=== PATIENT | male | born 1965 | race Caucasian/White ===

== ENCOUNTER 2023-10-06 23:28 | Observation (INO) | payer OTHER ==
[~2023-10-06] VITALS: Ht 177.8 cm; Wt 95.3 kg
[2023-10-07 00:04] VITALS: BP_SYST 131; PULSE 68; RESP 18; TEMP 98.3; O2SAT 97
[2023-10-07] MEDS ORDERED: NITROGLYCERIN 1 INCH (GM) OINT. TP ONE (00:24)
[2023-10-07] MEDS ORDERED: MORPHINE 4 MG INJ. 4 MG/ML VIAL IVP ONE ×2 (00:24→06:30)
[2023-10-07] MEDS ORDERED: ASPIRIN 325 MG TABLET PO ONE (00:30)
[2023-10-07 01:53] LABS: MONOCYTES # (AUTO) 0.5 K/uL (0.0-1.0); NEUTROPHILS # (AUTO) 3.5 K/uL (1.8-7.7)
[2023-10-07 02:08] LABS: THYROID STIMULATING HORMONE 2.54 uIu/mL (0.34-4.82)
[2023-10-07 02:21] LABS: BASOPHILS % (AUTO) 0.2 % (0.0-2.0); EOSINOPHILS # (AUTO) 0.2 K/uL (0.0-0.4); LYMPHOCYTES # (AUTO) 1.6 K/uL (1.0-5.5); LYMPHOCYTES % (AUTO) 28.2 % (20.5-51.5); MEAN CORPUSCULAR HEMOGLOBIN 29 pg (27-31); MEAN CORPUSCULAR HGB CONC 33 % (32-36); MEAN CORPUSCULAR VOLUME 89 fL (79.0-98.0); NEUTROPHILS % (AUTO) 59.6 % (40.0-70.0); PLATELET COUNT (AUTO) 258 K/uL (130-430); RED BLOOD CELL COUNT(AUTO) 4.85 MIL/uL (4.2-6.2); RED CELL DISTRIBUTION WIDTH 13.5 % (9.0-15.0); WHITE BLOOD COUNT (AUTO) 5.8 K/uL (4.8-10.8)
[2023-10-07 04:11] LABS: INR 0.9 (0.80-1.20); PROTHROMBIN TIME 9.8 SECS (9.5-12.5)
[2023-10-07 04:39] LABS: CALCIUM 8.6 mg/dL (8.4-11.0); CREATININE 0.82 mg/dL (0.55-1.30); POTASSIUM 3.8 mmol/L (3.5-5.1)
[2023-10-07 05:09] LABS: ALBUMIN 3.6 g/dL (3.4-4.8); TOTAL BILIRUBIN 0.4 mg/dL (0.0-1.0); TOTAL PROTEIN, SERUM 6.9 g/dL (6.4-8.3)
[2023-10-07] MEDS ORDERED: NITROGLYCERIN 0.4 MG TAB.SUBL SL PRN (07:15)
[2023-10-07] MEDS ORDERED: MORPHINE 4 MG INJ. 4 MG/ML VIAL IVP PRN (07:15)
[2023-10-07] MEDS ORDERED: ASPIRIN 81 MG TAB.CHEW PO SCH (09:00)
[2023-10-07] MEDS ORDERED: ATOR-1 PO (10:35)
[2023-10-07] MEDS ORDERED: METO-540 PO (10:35)
[2023-10-07] MEDS ORDERED: LEVO150T PO (10:35)
[2023-10-07] MEDS ORDERED: ASA81 PO (17:56)
[2023-10-07 18:14] VITALS: BP_SYST 118; PULSE 62; RESP 17; TEMP 97.7; O2SAT 96
== END 2023-10-07 18:15 | disposition home or self-care (01) ==
LOC: SED 23:28 → STU 10-07 07:01
PROVIDERS: ADMIT Family Medicine; ATTEND Family Medicine
DX: R07.89 Other chest pain (principal); R61 Generalized hyperhidrosis; E66.9 Obesity, unspecified; E78.5 Hyperlipidemia, unspecified; E03.9 Hypothyroidism, unspecified; I49.9 Cardiac arrhythmia, unspecified; Z87.891 Personal history of nicotine dependence; Z79.82 Long term (current) use of aspirin; Z68.30 Body mass index [BMI] 30.0-30.9, adult
CPT/HCPCS: 99291; 80053; 83880; 84443; 85025; 85379; 85610; 85730; 84484; 36415; 93005; 71045; 96374; 96376; J2270; G0378